=== PATIENT | female | born 1975 | race African-American/Black ===

== ENCOUNTER 2017-01-26 18:29 | Emergency (ER) | payer MEDICAID ==
[~2017-01-26] VITALS: Ht 180.3 cm; Wt 102.3 kg
[2017-01-26 18:48] VITALS: BP 131/77
== END 2017-01-26 22:30 | disposition left against medical advice (07) ==
LOC: ER 18:29
DX: Z53.21 Procedure and treatment not carried out due to patient leaving prior to being seen by health care provider (principal)